=== PATIENT | male | born 1975 | race African-American/Black ===

== ENCOUNTER 2018-10-19 19:57 | Emergency (ER) | payer OTHER ==
[~2018-10-19] VITALS: Ht 185.4 cm; Wt 136.1 kg
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
[2018-10-19 21:38] VITALS: BP 161/98
[2018-10-19] MEDS ORDERED: HYDR-3136 PO (21:48)
[2018-10-19] MEDS ORDERED: HYDROcodone/APAP 10/325 1 TAB TABLET PO ONE (22:00)
== END 2018-10-19 21:58 | disposition home or self-care (01) ==
LOC: ER 19:57
DX: S42.401A Unspecified fracture of lower end of right humerus, initial encounter for closed fracture (principal); M25.551 Pain in right hip; Y92.488 Other paved roadways as the place of occurrence of the external cause; V43.92XA Unspecified car occupant injured in collision with other type car in traffic accident, initial encounter; Y93.89 Activity, other specified; Y99.8 Other external cause status
CPT/HCPCS: 73080; 73502; 99283